=== PATIENT | female | born 1985 | race African-American/Black ===

== ENCOUNTER 2024-05-24 13:53 | Emergency (ER) | payer MEDICAID, BC ==
[~2024-05-24] VITALS: Ht 172.7 cm; Wt 99.8 kg
[2024-05-24 14:01] VITALS: TEMP 98.7; O2SAT 96
[2024-05-24 14:45] LABS: BASOPHILS % 0.9 % (0.0-2.0); EOSINOPHILS % 0.5 % (0.0-5.0); HEMOGLOBIN. 14.7 g/dL (12.0-16.0); LYMPHOCYTES % 28.6 % (20.0-50.0); MEAN CORPUSCULAR HEMOGLOBIN 29.2 pg (28.0-32.0); MEAN CORPUSCULAR HGB CONC 32.7 g/dL (31.0-37.0); MEAN CORPUSCULAR VOLUME 89.4 fL (81.0-99.0); MEAN PLATELET VOLUME 8.8 fl (7.4-10.4); PLATELET 244 x1000/uL (130-400); RED BLOOD CELL COUNT 5.03 mill/uL (4.2-5.4); RED CELL DISTRIBUTION WIDTH 14.3 % (11.6-14.6); WHITE BLOOD COUNT 7.5 x1000/uL (4.5-11.0)
[2024-05-24 14:51] LABS: CHLORIDE 106 mEq/L (98-107); POTASSIUM 4.3 mEq/L (3.5-5.1); SODIUM 140 mEq/L (136-145)
[2024-05-24 14:52] LABS: CALCIUM 9.8 mg/dL (8.7-10.4); CARBON DIOXIDE 29 mEq/L (21-32)
[2024-05-24 14:57] LABS: CREATININE 0.8 mg/dL (0.6-1.0); GLUCOSE 98 mg/dL (70-105); UREA NITROGEN BLOOD 7 mg/dL (9-23)
[2024-05-24 14:59] LABS: ALANINE AMINOTRANSFERASE 11 IU/L (10-49); ALBUMIN 4.7 g/dL (3.2-4.8); ASPARTATE AMINOTRANSFERASE 15 IU/L (<34); BILIRUBIN TOTAL 0.6 mg/dL (0.1-1.0); PROTEIN TOTAL 8.1 g/dL (6.0-8.3)
[2024-05-24 15:00] LABS: CLARITY URINE CLEAR (CLEAR); COLOR URINE YELLOW (YELLOW); GLUCOSE URINE NEGATIVE (NEGATIVE); KETONES URINE NEGATIVE (NEGATIVE); LEUKOCYTE ESTERASE URINE NEGATIVE (NEGATIVE); NITRITE URINE NEGATIVE (NEGATIVE); OCCULT BLOOD URINE NEGATIVE (NEGATIVE); PROTEIN URINE NEGATIVE (NEGATIVE); SPECIFIC GRAVITY URINE 1.012 (1.005-1.030); UROBILINOGEN URINE 0.2 E.U./dL (0.2-1.0)
[2024-05-24 15:25] LABS: TROPONIN I HIGH SENSITIVITY < 4 ng/L (3.0-34)
[2024-05-24] MEDS ORDERED: IOHEXOL-350 100 ML BOTTLE ONE (17:13)
[2024-05-24 18:31] VITALS: BP 130/70; PULSE 80; RESP 15
== END 2024-05-24 18:32 | disposition home or self-care (01) ==
LOC: ER 14:00
DX: R07.89 Other chest pain (principal); Z86.718 Personal history of other venous thrombosis and embolism
CPT/HCPCS: 99285; 93970; 71275; 71045; 80053; 81003; 81025; 83690; 85025; 84484; 36415; 93005; Q9967

== ENCOUNTER 2024-06-23 10:29 | Emergency (ER) | payer BC, OTHER ==
[~2024-06-23] VITALS: Ht 172.7 cm; Wt 101.6 kg
[2024-06-23 10:58] VITALS: O2SAT 100
[2024-06-23] MEDS ORDERED: FAMOTIDINE 20MG TABLET PO ONE (13:00)
[2024-06-23] MEDS ORDERED: DIPHENHYDRAMINE 50MG CAPSULE PO ONE (13:00)
[2024-06-23] MEDS ORDERED: DEXAMETHASONE 1MG TABLET PO ONE (13:00)
[2024-06-23] MEDS: FAMOTIDINE 20MG TABLET PO NR (13:47)
[2024-06-23] MEDS: DEXAMETHASONE 4MG TABLET PO NR (14:19)
[2024-06-23] MEDS: DIPHENHYDRAMINE 25MG CAPSULE PO ONE (14:20)
[2024-06-23 15:04] VITALS: BP 129/72; PULSE 67; RESP 14; TEMP 36.83628; O2SAT 100
== END 2024-06-23 15:04 | disposition home or self-care (01) ==
LOC: ER 10:29
DX: H57.13 Ocular pain, bilateral (principal); I82.409 Acute embolism and thrombosis of unspecified deep veins of unspecified lower extremity
CPT/HCPCS: 99283; 81025; J8540; Q0163